=== PATIENT | female | born 1960 ===

== ENCOUNTER 2016-07-25 07:38 | Emergency (ER) | payer OTHER ==
[2016-07-25 08:07] VITALS: BP 144/92; RESP 19; TEMP 97; O2SAT 99
[2016-07-25] MEDS ORDERED: Sodium Chloride 0.9% 1,000 ML IV STA (08:35)
--- NOTE | 2016-07-25 08:49 | ED PDOC ---
HPI: Headache Time Seen by Provider: 07/25/16 07:54 Chief Complaint (Nursing): Headache Chief Complaint (Provider): Headache History Per: Patient History/Exam Limitations: no limitations Onset/Duration Of Symptoms: Days Current Symptoms Are (Timing): Still Present Severity: Moderate Quality: "Pain" Preceeding Symptoms: None Associated Symptoms: denies: Blurred Vision, Nausea, Vomiting Additional Complaint(s): Patient is a 56 year old female who presents to ED for a headache for 1 week. Patient states pain worsened last night at 8pm associated with abdominal pain. Denies fever, cough, nausea, vomiting, diarrhea, back pain, urinary changes or visual changes. Patient notes only minimal relief with Motrin and Tylenol. Reports a history of recurrent headaches with no CT or MRI. PMD: DR. Davis Past Medical History Reviewed: Historical Data, Nursing Documentation, Vital Signs Vital Signs: Last Vital Signs Temp 97 F L 07/25/16 07:56 Pulse 89 07/25/16 07:56 Resp 19 07/25/16 07:56 BP 144/92 H 07/25/16 07:56 Pulse Ox 99 07/25/16 07:56 - Medical History PMH: Gastritis - Surgical History Surgical History: Appendectomy, - Family History Family History: States: No Known Family Hx - Allergies Allergies/Adverse Reactions: Allergies Allergy/AdvReac Type Severity Reaction Status Date / Time No Known Allergies Allergy Verified 07/25/16 07:55 Review of Systems ROS Statement: Except As Marked, All Systems Reviewed And Found Negative Constitutional: Negative for: Fever, Chills Eyes: Negative for: Vision Change Cardiovascular: Negative for: Chest Pain, Palpitations Respiratory: Negative for: Shortness of Breath Gastrointestinal: Positive for: Abdominal Pain. Negative for: Nausea, Vomiting , Diarrhea Genitourinary Female: Negative for: Dysuria, Hematuria Musculoskeletal: Negative for: Neck Pain, Back Pain Skin: Negative for: Rash Neurological: Positive for: Headache. Negative for: Weakness, Numbness, Incoordination, Change in Speech, Dizziness Physical Exam - Reviewed Nursing Documentation Reviewed: Yes Vital Signs Reviewed: Yes - Physical Exam Appears: Positive for: Non-toxic, No Acute Distress Head Exam: Positive for: ATRAUMATIC Skin: Positive for: Normal Color, Warm Eye Exam: Positive for: Normal appearance, EOMI, PERRL Neck: Positive for: Normal, Painless ROM Cardiovascular/Chest: Positive for: Regular Rate, Rhythm. Negative for: Murmur Respiratory: Positive for: Normal Breath Sounds. Negative for: Respiratory Distress Gastrointestinal/Abdominal: Positive for: Soft, Tenderness (mild diffuse). Negative for: Distended, Guarding, Rebound Extremity: Positive for: Normal ROM Neurologic/Psych: Positive for: Alert, Oriented. Negative for: Motor/Sensory Deficits - Laboratory Results Result Diagrams: 07/25/16 09:11 07/25/16 09:11 - ECG ECG: Positive for: Interpreted By Me, Viewed By Me ECG Rhythm: Positive for: Normal QRS, Normal ST Segment, Sinus Rhythm, 1st Degree Heart Block Rate: 73 O2 Sat by Pulse Oximetry: 99 (RA) Pulse Ox Interpretation: Normal - Progress Re-evaluation Time: 11:00 Condition: Re-examined, Improved Medical Decision Making Medical Decision Making: Time: 829 Initial impression: Recurrent headache, possible migraine associated with gastritis, abdominal migraine. R/O brain mass Initial plan: -- CT-head -- EKG -- CMP -- Troponin -- Urine dip -- CBC -- ESR -- NSF, Reglan and Toradol Time: 1030 CT-head results reviewed Impression: Normal CT of the head. No intracranial mass, hemorrhage or evidence of acute infarct Scribe Attestation: Documented by Claudia Hitchcock acting as a scribe for Tino Barba MD MD Scribe Attestation: All medical record entries made by the Scribe were at my direction and personally dictated by me. I have reviewed the chart and agree that the record accurately reflects my personal performance of the history, physical exam, medical decision making, and the department course for this patient. I have also personally directed, reviewed, and agree with the discharge instructions and disposition. Disposition - Clinical Impression Clinical Impression: Headache, Abdominal pain - Patient ED Disposition Is Patient to be Admitted: No Doctor Will See Patient In The: Office Counseled Patient/Family Regarding: Studies Performed, Diagnosis, Need For Followup - Disposition Referrals: [facility] [Outside] Disposition: Routine/Home Disposition Time: 11:02 Condition: GOOD Additional Instructions: Return fro worsening. Follow up with your PCP in 2-3 days. Instructions: General Headache (ED) Print Language: PORTUGUESE
[2016-07-25 09:16] LABS: BASO # 0.1 K/uL (0.0-0.2); BASO % 0.8 % (0.0-2.0); EOS # 0.1 K/uL (0.0-0.7); HEMATOCRIT 40.1 % (34.0-47.0); LYMPH # 2.5 K/uL (1.0-4.3); LYMPH % 36.3 % (20.0-40.0); MEAN CELL VOLUME 90.9 fl (81.0-99.0); MEAN CORPUSCULAR HEMOGLOBIN 30.3 pg (27.0-31.0); MEAN CORPUSCULAR HGB CONC 33.3 g/dL (33.0-37.0); MEAN PLATELET VOLUME 7.3 fl (7.2-11.7); MONO # 0.6 K/uL (0.0-0.8); MONO % 8.5 % (0.0-10.0); NEUT # 3.6 K/uL (1.8-7.0); NEUT % 52.4 % (50.0-75.0); RED CELL DISTRIBUTION WIDTH 12.9 % (11.5-14.5); WHITE BLOOD COUNT 6.9 K/uL (4.8-10.8)
[2016-07-25 09:35] LABS: ALB/GLOB RATIO 1.4 (1.0-2.1); ALKALINE PHOSPHATASE 105 U/L (38-126); ALT/SGPT 27 U/L (9-52); AST/SGOT 29 U/L (14-36); BILIRUBIN,TOTAL 0.8 mg/dl (0.2-1.3); BLOOD UREA NITROGEN 10 mg/dl (7-17); CALCIUM 9.8 mg/dL (8.4-10.2); CARBON DIOXIDE 24 mmol/L (22-30); CHLORIDE 108 mmol/L (98-107); GFR AFRICAN-AMERICAN > 60; GLUCOSE,RANDOM 98 mg/dL (65-105); SODIUM 142 mmol/l (132-148); TOTAL PROTEIN 7.9 G/DL (6.3-8.2)
--- NOTE | 2016-07-25 09:42 | CT ---
PROCEDURE: CT HEAD WITHOUT CONTRAST. HISTORY: headache COMPARISON: None available. TECHNIQUE: Axial computed tomography images were obtained through the head/brain without intravenous contrast. Radiation dose: Total exam DLP = 775.66 mGy-cm. This CT exam was performed using one or more of the following dose reduction techniques: Automated exposure control, adjustment of the mA and/or kV according to patient size, and/or use of iterative reconstruction technique. FINDINGS: HEMORRHAGE: No intracranial hemorrhage. BRAIN: No mass effect or edema. No atrophy or chronic microvascular ischemic changes. VENTRICLES: Unremarkable. No hydrocephalus. CALVARIUM: Unremarkable. PARANASAL SINUSES: Unremarkable as visualized. No significant inflammatory changes. MASTOID AIR CELLS: Unremarkable as visualized. No inflammatory changes. OTHER FINDINGS: None. IMPRESSION: Normal CT of the Head. No intracranial mass, hemorrhage or evidence of acute infarct.
[2016-07-25 09:47] LABS: POTASSIUM 4.4 MMOL/L (3.6-5.0)
[2016-07-25 11:01] VITALS: PULSE 73
[2016-07-25 11:07] LABS: RBC URINE 7 /hpf (0-3); URINE BACTERIA RARE (<OCC); URINE BILIRUBIN NEGATIVE (NEGATIVE); URINE BLOOD MODERATE (NEGATIVE); URINE COLOR YELLOW (YELLOW); URINE GLUCOSE (UA) NEG (Normal); URINE KETONE NEGATIVE (NEGATIVE); URINE LEUKOCYTE ESTERASE NEG Leu/uL (Negative); URINE PROTEIN NEGATIVE (NEGATIVE); URINE UROBILINOGEN 0.2-1.0 mg/dL (0.2-1.0); WBC URINE < 1 /hpf (0-5)
--- NOTE | 2016-07-26 13:44 | CARD ---
APPROVED REPORT EKG Measurement Heart [id number] <Conclusion> Sinus rhythm with 1st degree AV block Otherwise normal ECG
== END 2016-07-25 11:19 | disposition home or self-care (01) ==
LOC: H.ER 07:38
DX: R10.9 Unspecified abdominal pain (principal); R51 Headache

== ENCOUNTER 2017-04-23 18:28 | Inpatient (IN) | payer SELFPAY ==
[2017-04-23 20:10] LABS: BASO # 0.1 K/uL (0.0-0.2); BASO % 0.8 % (0.0-2.0); EOS # 0.1 K/uL (0.0-0.7); EOS % 1.2 % (0.0-4.0); HEMOGLOBIN 13.5 g/dL (12.0-16.0); LYMPH # 2.8 K/uL (1.0-4.3); LYMPH % 32.8 % (20.0-40.0); MEAN CELL VOLUME 91.3 fl (81.0-99.0); MEAN PLATELET VOLUME 7.5 fl (7.2-11.7); MONO # 0.7 K/uL (0.0-0.8); MONO % 8.3 % (0.0-10.0); NEUT # 4.8 K/uL (1.8-7.0); NEUT % 56.9 % (50.0-75.0); RBC 4.35 Mil/uL (3.80-5.20); RED CELL DISTRIBUTION WIDTH 12.8 % (11.5-14.5); WHITE BLOOD COUNT 8.4 K/uL (4.8-10.8)
[2017-04-23 20:12] LABS: PROTHROMBIN TIME 11.6 Seconds (9.8-13.1)
[2017-04-23 20:13] LABS: PARTIAL THROMBOPLASTIN TIME 28.4 Seconds (25.6-37.1)
[2017-04-23 20:25] LABS: B-TYPE NATRIURETIC PEPTIDE 61.3 pg/ml (0-900)
[2017-04-23 20:42] LABS: ALB/GLOB RATIO 1.2 (1.0-2.1); ALBUMIN 4.2 g/dL (3.5-5.0); ALT/SGPT 31 U/L (9-52); AST/SGOT 19 U/L (14-36); BLOOD UREA NITROGEN 14 mg/dl (7-17); CALCIUM 9.9 mg/dL (8.4-10.2); GFR AFRICAN-AMERICAN > 60; GFR NON-AFRICAN AMERICAN > 60
--- NOTE | 2017-04-23 20:59 | ED PDOC ---
HPI: Chest Pain Time Seen by Provider: 04/23/17 18:57 Chief Complaint (Nursing): Chest Pain Chief Complaint (Provider): Chest Pain History Per: Patient History/Exam Limitations: no limitations Additional Complaint(s): 57 y/o female presents to the ED complaining of palpitations that started on Sunday. She feels that her heart is sometimes beating fast and sometimes beating slow. Notes that this is happening frequently. Patient feels better when she coughs. She came back from [facility] 8 days ago and had some leg swelling in flight. Denies shortness of breath, leg swelling or any further medical complaints. PMD: Anthony Davis MD Past Medical History Reviewed: Historical Data, Nursing Documentation, Vital Signs Vital Signs: Last Vital Signs Temp 98.0 F 04/24/17 08:00 Pulse 72 04/24/17 08:00 Resp 18 04/24/17 08:00 BP 110/72 04/24/17 08:00 Pulse Ox 97 04/24/17 08:00 - Medical History PMH: Gastritis - Surgical History Surgical History: Appendectomy, - Family History Family History: States: Other Other Family History: Cardiac disease and arrythmia - Living Arrangements Living Arrangements: With Family - Social History Current smoker - smoking cessation education provided: No Alcohol: None Drugs: Denies - Home Medications Home Medications: Ambulatory Orders Medication Instructions Recorded Atorvastatin Calcium [Atorvastatin 20 mg PO HS 04/23/17 Calcium] Pantoprazole Sodium [Protonix] 40 mg PO DAILY 04/23/17 - Allergies Allergies/Adverse Reactions: Allergies Allergy/AdvReac Type Severity Reaction Status Date / Time No Known Allergies Allergy Verified 07/25/16 07:55 Review of Systems ROS Statement: Except As Marked, All Systems Reviewed And Found Negative (As per HPI, othewise negative) Cardiovascular: Positive for: Palpitations Respiratory: Negative for: Shortness of Breath Musculoskeletal: Negative for: Other (leg swelling) Physical Exam - Reviewed Nursing Documentation Reviewed: Yes Vital Signs Reviewed: Yes - Physical Exam Appears: Positive for: Non-toxic, In Acute Distress Head Exam: Positive for: ATRAUMATIC, NORMOCEPHALIC Skin: Positive for: Warm, Dry Eye Exam: Positive for: EOMI, PERRL ENT: Negative for: Pharyngeal Erythema, Tonsillar Exudate Cardiovascular/Chest: Positive for: Other (regular rhythm with frequent extra beats). Negative for: Edema, Murmur, Bradycardia, Tachycardia Respiratory: Positive for: Normal Breath Sounds. Negative for: Respiratory Distress Gastrointestinal/Abdominal: Positive for: Soft. Negative for: Tenderness Back: Positive for: Normal Inspection. Negative for: Decreased ROM Extremity: Positive for: Normal ROM. Negative for: Deformity Lymphatic: Negative for: Adenopathy Neurologic/Psych: Positive for: Alert. Negative for: Motor/Sensory Deficits - Laboratory Results Result Diagrams: 04/23/17 19:54 04/23/17 19:54 - ECG O2 Sat by Pulse Oximetry: 99 (RA) Pulse Ox Interpretation: Normal Medical Decision Making Medical Decision Making: Time: 19:33 Initial Impression: Palpitations Plan: EKG Urine dipstick Chest x-ray surveillance monitor IV insertion (Saline lock) Reevalaution --EKG reveals multiple PVCs --needs hopitallization for full cardiac evaluation, especially with episodes of chest pain during palpitations and increasing frequency --Pending ER workup Time: 09:00 -- Labs are unremarkable --Chest x-ray - no acute findings Scribe Attestation: Documented by Lelo Serrano acting as a scribe for Diana Weller MD. Scribe Attestation: All medical record entries made by the Scribe were at my direction and personally dictated by me. I have reviewed the chart and agree that the record accurately reflects my personal performance of the history, physical exam, medical decision making, and the department course for this patient. I have also personally directed, reviewed, and agree with the discharge instructions and disposition. Disposition - Clinical Impression Clinical Impression: Arrhythmia Discussed With : Antione Lee Doctor Will See Patient In The: ED Counseled Patient/Family Regarding: Studies Performed, Diagnosis - Disposition Disposition Time: 21:00 Condition: FAIR - Pt Status Changed To: Hospital Disposition Of: Observation - POA Present On Arrival: None
--- NOTE | 2017-04-23 21:15 | CP.PCM.HP ---
History of Present Illness - History of Present Illness History of Present Illness: PMD: Anthony Davis MD Chief Complaint: Palpitation/ Chest pressure The patient was seen and examined in the ED HPI: 57 years old female with hx of Migraine and Gastritis, comes with 4 days of intermittent episodes of Palpitation associated with a pressure type of chest pain and difficulty to breath during these episode. The pain is localized at the pericardium and is present with the palpitation. No coughing, vomiting, Fever, diarrhea. PMH: Gastritis; Migraine, Arthritis PSH: Appendectomy: C Section; Oophorectomy SH: No illegal drug use ; No ETOH use; Former Smoker; Live with family; Works cleaning houses FH: Cardiac Disese and Arrhythmia Allergies: NKDA Medication: Reviewed Present on Admission - Present on Admission Any Indicators Present on Admission: No History of DVT/PE: No History of Uncontrolled Diabetes: No Urinary Catheter: No Decubitus Ulcer Present: No Review of Systems - Constitutional Constitutional: absent: Chills, Fever, Lethargy - EENT Eyes: Requires Corrective Lenses. absent: Diplopia, Floaters, Photophobia, Sees Flashes Ears: absent: Decreased Hearing, Ear Discharge, Ear Pain, Tinnitus Nose/Mouth/Throat: absent: Epistaxis, Nasal Congestion, Sinus Pain, Sinus Pressure - Cardiovascular Cardiovascular: Chest Pain. absent: Claudication, Dyspnea, Leg Edema - Respiratory Respiratory: absent: Cough, Wheezing, Chest Congestion, Excessive Mucous Production - Gastrointestinal Gastrointestinal: absent: Abdominal Pain, Constipation, Diarrhea, Nausea, Vomiting - Musculoskeletal Musculoskeletal: Arthralgias. absent: Muscle Weakness, Radiating Pain into Limb - Integumentary Integumentary: absent: Changing Lesions, Dry Skin, Skin Ulcer, Sores, Striae, Swelling - Neurological Neurological: absent: Confusion, Numbness, Focal Weakness, Weakness - Psychiatric Psychiatric: absent: Anxiety, Depression, Panic Attacks - Endocrine Endocrine: absent: Palpitations, Polydipsia, Polyphagia, Polyuria - Hematologic/Lymphatic Hematologic: absent: Easy Bleeding, Easy Bruising Past Patient History - Infectious Disease Hx of Infectious Diseases: None - Past Medical History & Family History Past Medical History?: Yes - Past Social History Smoking Status: Former Smoker Chewing Tobacco Use: No Cigar Use: No Alcohol: None Drugs: Denies Home Situation {Lives}: With Family - CARDIAC Hx Cardiac Disorders: No - NEUROLOGICAL Hx Neurological Disorder: No - HEENT Hx HEENT Problems: No - RENAL Hx Chronic Kidney Disease: No - INTEGUMENTARY Hx Basil Cell: No - MUSCULOSKELETAL/RHEUMATOLOGICAL Hx Falls: No - GASTROINTESTINAL Hx Gastritis: Yes - GENITOURINARY/GYNECOLOGICAL Hx Genitourinary Disorders: No - PSYCHIATRIC Hx Psychophysiologic Disorder: No Hx Substance Use: No - SURGICAL HISTORY Hx Appendectomy: Yes Hx Section: Yes - ANESTHESIA Hx Anesthesia: Yes Hx Anesthesia Reactions: No Meds Allergies/Adverse Reactions: Allergies Allergy/AdvReac Type Severity Reaction Status Date / Time No Known Allergies Allergy Verified 07/25/16 07:55 Physical Exam - Constitutional Appears: No Acute Distress - Head Exam Head Exam: ATRAUMATIC, NORMAL INSPECTION, NORMOCEPHALIC - Eye Exam Eye Exam: EOMI, Normal appearance Pupil Exam: NORMAL ACCOMODATION, Unequal - ENT Exam ENT Exam: Mucous Membranes Moist, Normal Exam, Normal External Ear Exam, Normal Oropharynx - Neck Exam Neck exam: Positive for: Full Rom, Normal Inspection. Negative for: Lymphadenopathy, Tenderness - Respiratory Exam Respiratory Exam: Clear to Auscultation Bilateral. absent: Rales, Rhonchi, Wheezes - Cardiovascular Exam Cardiovascular Exam: RRR, +S1, +S2 Additional comments: Rhythm regular with irregularity - GI/Abdominal Exam GI & Abdominal Exam: Normal Bowel Sounds, Soft. absent: Mass, Organomegaly, Tenderness - Rectal Exam Rectal Exam: Deferred - Extremities Exam Extremities exam: Positive for: full ROM, normal inspection. Negative for: calf tenderness, pedal edema - Back Exam Back exam: NORMAL INSPECTION. absent: CVA tenderness (L), CVA tenderness (R) - Neurological Exam Neurological exam: Alert, CN II-XII Intact, Oriented x3, Reflexes Normal - Psychiatric Exam Psychiatric exam: Normal Affect, Normal Mood - Skin Skin Exam: Dry, Intact, Normal Color, Warm Results - Vital Signs Recent Vital Signs: Last Vital Signs Temp 97.5 F L 04/23/17 18:43 Pulse 103 H 04/23/17 18:43 Resp 16 04/23/17 18:43 BP 150/76 04/23/17 18:43 Pulse Ox 99 04/23/17 21:04 - Labs Result Diagrams: 04/23/17 19:54 04/23/17 19:54 Labs: Laboratory Results - last 24 hr 04/23/17 04/23/17 04/23/17 19:45 19:54 19:54 WBC 8.4 RBC 4.35 Hgb 13.5 Hct 39.7 MCV 91.3 MCH 31.0 MCHC 34.0 RDW 12.8 Plt Count 295 MPV 7.5 Neut % (Auto) 56.9 Lymph % (Auto) 32.8 Lassen % (Auto) 8.3 Eos % (Auto) 1.2 Baso % (Auto) 0.8 Neut # (Auto) 4.8 Lymph # (Auto) 2.8 Lassen # (Auto) 0.7 Eos # (Auto) 0.1 Baso # (Auto) 0.1 PT INR APTT D-Dimer, Quantitative Sodium 143 Potassium 3.8 Chloride 109 H Carbon Dioxide 21 L Anion Gap 17 BUN 14 Creatinine 0.7 Est GFR ( Amer) > 60 Est GFR (Non-Af Amer) > 60 Random Glucose 116 H Calcium 9.9 Phosphorus 3.1 Magnesium Total Bilirubin 0.6 AST 19 ALT 31 Alkaline Phosphatase 78 Troponin I < 0.0120 NT-Pro-B Natriuret Pep 61.3 Total Protein 7.7 Albumin 4.2 Globulin 3.5 Albumin/Globulin Ratio 1.2 TSH 3rd Generation 1.06 Blood Type A POSITIVE Antibody Screen Negative BBK History Checked No verified bt 04/23/17 04/23/17 19:54 20:32 WBC RBC Hgb Hct MCV MCH MCHC RDW Plt Count MPV Neut % (Auto) Lymph % (Auto) Lassen % (Auto) Eos % (Auto) Baso % (Auto) Neut # (Auto) Lymph # (Auto) Lassen # (Auto) Eos # (Auto) Baso # (Auto) PT 11.6 INR 1.0 APTT 28.4 D-Dimer, Quantitative 192 Sodium Potassium Chloride Carbon Dioxide Anion Gap BUN Creatinine Est GFR ( Amer) Est GFR (Non-Af Amer) Random Glucose Calcium Phosphorus Magnesium 1.9 Total Bilirubin AST ALT Alkaline Phosphatase Troponin I NT-Pro-B Natriuret Pep Total Protein Albumin Globulin Albumin/Globulin Ratio TSH 3rd Generation Blood Type Antibody Screen BBK History Checked - EKG Data EKG comments: Sinus Rhythm with Multiple PVC 95/min - Imaging and Cardiology Chest x-ray Status: Image reviewed by me Additional comment: No infiltrate Clear lungs Assessment & Plan - Assessment and Plan (Free Text) Assessment: #. Cardiac arrhythmia #. Chest Pain #. Gastritis Plan: 57 years old female with hx of Migraine and Gastritis, comes with 4 days of intermittent episodes of Palpitation associated with a pressure type of chest pain and difficulty to breath during these episode. #. Cardiac arrhythmia causing palpitations - Admit to the Telemetry unit with cardiac monitoring - Electrolytes are within normal limits - Cardiology consult with Dr Dacosta #. Chest Pain due to ischemia during episodes of arrhythmia - Serial Troponin - Serial EKG - ECHO - Lipid profile - ASA - Statin #. Gastritis - Pantoprazole #. DVT Prophylaxis with Lovenox #. Code Status:Full - Date & Time Date: 04/23/17 Time: 21:15
[2017-04-24 06:12] LABS: HDL CHOLESTEROL 47 MG/DL (30-70)
[2017-04-24 06:22] LABS: LDL CHOLESTEROL 87 mg/dL (0-129)
[2017-04-24] MEDS: Enoxaparin 40 mg Syringe SC SCH (09:36)
[2017-04-24] MEDS: Pantoprazole 40 mg EC Tab PO SCH (09:36)
--- NOTE | 2017-04-24 11:25 | RAD ---
HISTORY: Palpitations COMPARISON: No prior. FINDINGS: LUNGS: No active pulmonary disease. PLEURA: No significant pleural effusion identified, no pneumothorax apparent. CARDIOVASCULAR: No radiographic findings to suggest acute or significant cardiovascular disease. OSSEOUS STRUCTURES: No significant abnormalities. VISUALIZED UPPER ABDOMEN: Normal. OTHER FINDINGS: None. IMPRESSION: No active disease.
--- NOTE | 2017-04-24 15:03 | CARD ---
APPROVED REPORT EXAM: Two-dimensional and M-mode echocardiogram with Doppler and color Doppler. Other Information Quality : GoodRhythm : NSR INDICATION Chest pressure Palpitations 2D DIMENSIONS IVSd0.94 (0.7-1.1cm)LVDd3.70 (3.9-5.9cm) PWd0.88 (0.7-1.1cm)IVSs1.38 (0.8-1.2cm) LVDs2.43 (2.5-4.0cm)FS (%) 34.3 % PWs1.26 (0.8-1.2cm) M-Mode DIMENSIONS Left Atrium (MM)3.17 (2.5-4.0cm)IVSd0.91 (0.7-1.1cm) Aortic Root2.26 (2.2-3.7cm)LVDd5.07 (4.0-5.6cm) Aortic Cusp Exc.1.85 (1.5-2.0cm)PWd0.85 (0.7-1.1cm) IVSs1.63 cmFS (%) 48 % LVDs2.62 (2.0-3.8cm)PWs1.57 cm Mitral Valve MV E Loiutmom84.4cm/sMV DECEL [id number] A Xtluyvgy43.5cm/s MV MTL08zmR/A ratio0.8MVA (PHT)3.85cm2 TDI Lateral E' Peak V13.28cm/sMedial E' Peak V8.31cm/sE/Lateral E'3.0 E/Medial E'4.9 Pulmonary Valve PV Peak Cmsquxzr644.3cm/s LEFT VENTRICLE The left ventricle is normal size. There is normal left ventricular wall thickness. The left ventricular function is normal. The left ventricular ejection fraction is within the normal range. The Ejection Fraction is 60-65%. There is normal LV segmental wall motion. The left ventricular diastolic function is normal. RIGHT VENTRICLE The right ventricle is normal size. The right ventricular systolic function is normal. ATRIA The left atrium size is normal. The right atrium size is normal. AORTIC VALVE The aortic valve is normal in structure. No aortic regurgitation is present. There is no aortic valvular stenosis. MITRAL VALVE The mitral valve is normal in structure. There is no mitral valve stenosis. There is no mitral valve regurgitation noted. TRICUSPID VALVE The tricuspid valve is normal in structure. There is no tricuspid valve regurgitation noted. There is no tricuspid valve stenosis. PULMONIC VALVE The pulmonary valve is normal in structure. There is no pulmonic valvular regurgitation. GREAT VESSELS The aortic root is normal in size. The IVC is normal in size and collapses >50% with inspiration. PERICARDIAL EFFUSION The pericardium appears normal. <Conclusion> The left ventricle is normal size. The left ventricular function is normal. The left ventricular ejection fraction is within the normal range. The Ejection Fraction is 60-65%.
--- NOTE | 2017-04-24 17:03 | CARD ---
APPROVED REPORT EKG Measurement Heart [id number] <Conclusion> Sinus rhythm with frequent premature ventricular complexes Possible Left atrial enlargement Incomplete right bundle branch block Borderline ECG
[2017-04-24] MEDS ORDERED: Potassium Chloride 20 mEq/15 ml LIQ UD PO ONE (17:53)
--- NOTE | 2017-04-24 18:18 | CP.PCM.CON ---
History of Present Illness - History of Present Illness History of Present Illness: pt with palp starting yesterday and into this am. felt palp and chest tightness. no dizziness, no radiation of pain, no blurry vision. pt denies hx of palp, syncope, cp, dm, htn, dyslipid, fam hx of hd or tobacco use. pts bp reportedly is always on low side. she did notice mild edema in LLE and mild pain. states this always happens when she flies. pt with vent cassius on tele. she recently traveled to [place]. physical exam shows mild LLE edema. Review of Systems - Constitutional Constitutional: As Per HPI. absent: Anorexia, Chills, Daytime Sleepiness, Excessive Sweating, Fatigue, Fever, Frequent Falls, Headache, Increased Appetite , Lethargy, Malaise, Night Sweats, Snoring, Sleep Apnea, Weight Gain, Weight Loss, Weakness, Other - EENT Eyes: As Per HPI. absent: Blind Spots, Blurred Vision, Change in Vision, Decreased Night Vision, Diplopia, Discharge, Dry Eye, Exophthalmos, Floaters, Irritation, Itchy Eyes, Loss of Peripheral Vision, Pain, Photophobia, Requires Corrective Lenses, Sees Flashes, Spots in Vision, Tunnel Vision, Other Visual Disturbances, Loss of Vision, Other Ears: As Per HPI. absent: Decreased Hearing, Ear Discharge, Ear Pain, Tinnitus , Abnormal Hearing, Disequilibrium, Dizziness, Other Nose/Mouth/Throat: As Per HPI. absent: Epistaxis, Nasal Congestion, Nasal Discharge, Nasal Obstruction, Nasal Trauma, Nose Pain, Post Nasal Drip, Sinus Pain, Sinus Pressure, Bleeding Gums, Change in Voice, Dental Pain, Dry Mouth, Dysphagia, Halitosis, Hoarsness, Lip Swelling, Mouth Lesions, Mouth Pain, Odynophagia, Sore Throat, Throat Swelling, Tongue Swelling, Facial Pain, Neck Pain, Neck Mass, Other - Breasts Breasts: As Per HPI. absent: Change in Shape, Mass, Pain, Nipple Discharge, Nipple Inversion, Skin Changes, Swelling, Other - Cardiovascular Cardiovascular: As Per HPI, Chest Pain, Palpitations, Pedal Edema, Rapid Heart Rate. absent: Acrocyanosis, Chest Pain at Rest, Chest Pain with Activity, Claudication, Diaphoresis, Dyspnea, Dyspnea on Exertion, Edema, Irregular Heart Rhythm, Pain Radiating to Arm/Neck/Jaw, Leg Edema, Leg Ulcers, Lightheadedness, Orthopnea, Paroxysmal Nocturnal Dyspnea, Radiating Pain, Slow Heart Rate, Syncope, Other - Respiratory Respiratory: As Per HPI. absent: Cough, Dyspnea, Hemoptysis, Dyspnea on Exertion, Wheezing, Snoring, Stridor, Pain on Inspiration, Chest Congestion, Excessive Mucous Production, Change in Mucous Color, Pain with Coughing, Other - Gastrointestinal Gastrointestinal: As Per HPI. absent: Abdominal Pain, Belching, Bloating, Change in Bowel Habits, Change in Stool Character, Coffee Ground Emesis, Constipation, Cramping, Diarrhea, Dyspepsia, Dysphagia, Early Satiety, Excessive Flatus, Fecal Incontinence, Heartburn, Hematemesis, Hematochezia, Loose Stools, Melena, Nausea, Odynophagia, Temesmus, Vomiting, Other - Genitourinary Genitourinary: As Per HPI. absent: Change in Urinary Stream, Difficulty Urinating, Dysuria, Flank Pain, Hematuria, Pyuria, Nocturia, Urinary Incontinence, Urinary Frequency, Urinary Hesitance, Urinary Urgency, Voiding Freq/Small Amts, Freq UTI, Hx Renal/Bladder Calculi, Hx /Renal Surgery, Bladder Distension, Other - Reproductive: Female Reproductive:Female: As Per HPI. absent: Amenorrhea, Amenorrhea/ Control, Currently Menstual, Cycle <21 Days, Cycle >35 Days, Cycle Variable, Menses 1-7 Days, Menses >/= 8 Days, Menses Variable, Cycle > 4 Weeks Between, No Menses for 6 Months, Heavy Menses, Light Menses, Normal Menses, Spotting Between Cycles , S/P Hysterectomy, Menopausal, Post Menopausal, Premenarche, Abnormal Vaginal Bleeding, Dysmenorrhea, Dyspareunia, Genital Lesions, Genital Pruritis, Pelvic Pain, Prolapse Symptoms, Sexual Dysfunction, Vaginal Discharge, Vaginal Dryness , Vaginal Odor, Vaginal Pruritis, Other - Menstruation Menstruation: As Per HPI, Post Menopausal. absent: Amenorrhea, Amenorrhea/ Control, Currently Menstual, Cycle <21 Days, Cycle >35 Days, Cycle Variable, Menses 1-7 Days, Menses >/= 8 Days, Menses Variable, Cycle > 4 Weeks Between, No Menses for 6 Months, Heavy Menses, Light Menses, Normal Menses, Spotting Between Cycles, S/P Hysterectomy, Menopausal, Premenarche, Abnormal Vaginal Bleeding, Dysmenorrhea, Other - Musculoskeletal Musculoskeletal: As Per HPI. absent: Abnormal Gait, Arthralgias, Atrophy, Back Pain, Deformity, Joint Swelling, Limited Range of Motion, Loss of Height, Muscle Cramps, Muscle Weakness, Myalgias, Neck Pain, Numbness, Radiating Pain into Limb, Stiffness, Tingling, Other - Integumentary Integumentary: As Per HPI. absent: Acne, Alopecia, Bleeding Lesions, Change in Hair, Change in Nails, Change in Pigmentation, Changing Lesions, Dry Skin, Erythema, Furuncle, Hirsutism, Lesions, New Lesions, Non-Healing Lesions, Photosensitivity, Pruritus, Rash, Skin Pain, Skin Ulcer, Sores, Striae, Swelling , Unusual Bruising, Wounds, Jaundice, Other - Neurological Neurological: As Per HPI. absent: Abnormal Gait, Abnormal Hearing, Abnormal Movements, Abnormal Speech, Behavioral Changes, Burning Sensations, Confusion, Convulsions, Disequilibrium, Dizziness, Numbness, Focal Weakness, Frequent Falls , Headaches, Lack of Coordination, Loss of Vision, Memory Loss, Paresthesias, Radicular Pain, Restless Legs, Sensory Deficit, Syncope, Tingling, Tremor, Vertigo, Weakness, Other Visual Disturbances, Other - Psychiatric Psychiatric: As Per HPI. absent: Abnormal Sleep Pattern, Anhedonia, Anxiety, Auditory Hallucinations, Behavioral Changes, Change in Appetite, Change in Libido, Confusion, Depression, Difficulty Concentrating, Hallucinations, Homicidal Ideation, Hopelessness, Irritability, Memory Loss, Mood Swings, Panic Attacks, Paranoia, Suicidal Ideation, Visual Hallucinations, Tactile Hallucinations, Other - Endocrine Endocrine: As Per HPI. absent: Change in Body Appearance, Change in Libido, Cold Intolorance, Deepening of Voice, Excessive Sweating, Fatigue, Flushing, Heat Intolorance, Increase in Ring/Shoe/Hat Size, Palpitations, Polydipsia, Polyphagia, Polyuria, Other - Hematologic/Lymphatic Hematologic: As Per HPI. absent: Easy Bleeding, Easy Bruising, Lymphadenopathy , Other Past Patient History - Infectious Disease Hx of Infectious Diseases: None - Past Medical History & Family History Past Medical History?: Yes - Past Social History Smoking Status: Never Smoked Alcohol: None Drugs: Denies Home Situation {Lives}: With Family Domestic Violence: Negative - CARDIAC Hx Cardiac Disorders: No - PULMONARY Hx Respiratory Disorders: No - NEUROLOGICAL Hx Neurological Disorder: No - HEENT Hx HEENT Problems: No - RENAL Hx Chronic Kidney Disease: No - ENDOCRINE/METABOLIC Hx Endocrine Disorders: No - HEMATOLOGICAL/ONCOLOGICAL Hx Blood Disorders: No - INTEGUMENTARY Hx Basil Cell: No - MUSCULOSKELETAL/RHEUMATOLOGICAL Hx Falls: No - GASTROINTESTINAL Hx Gastritis: Yes - GENITOURINARY/GYNECOLOGICAL Hx Genitourinary Disorders: No - PSYCHIATRIC Hx Psychophysiologic Disorder: No Hx Substance Use: No - SURGICAL HISTORY Hx Appendectomy: Yes - ANESTHESIA Hx Anesthesia: Yes Hx Anesthesia Reactions: No Meds Allergies/Adverse Reactions: Allergies Allergy/AdvReac Type Severity Reaction Status Date / Time No Known Allergies Allergy Verified 07/25/16 07:55 - Medications Medications: Current Medications Aspirin (Ecotrin) 81 mg PO DAILY [facility] Last Admin: 04/24/17 09:36 Dose: 81 mg Atorvastatin Calcium (Lipitor) 20 mg PO HS [facility]RISTY Enoxaparin Sodium (Lovenox) 40 mg SC DAILY [facility] PRN Reason: Protocol Last Admin: 04/24/17 09:36 Dose: 40 mg Magnesium Sulfate 1 gm/ Sodium (Chloride) 102 mls @ 204 mls/hr IVPB ONCE ONE PRN Reason: 1 GM/30 MIN Stop: 04/24/17 18:23 Metoprolol Tartrate (Lopressor) 12.5 mg PO Q12 [facility] Pantoprazole Sodium (Protonix Ec Tab) 40 mg PO DAILY [facility] Last Admin: 04/24/17 09:36 Dose: 40 mg Physical Exam - Constitutional Appears: Well - Head Exam Head Exam: ATRAUMATIC, NORMAL INSPECTION, NORMOCEPHALIC - Eye Exam Eye Exam: EOMI, Normal appearance, PERRL. absent: Conjunctival injection, Nystagmus, Periorbital swelling, Periorbital tenderness, Scleral icterus Pupil Exam: NORMAL ACCOMODATION, PERRL. absent: Fixed, Irregular, Miosis, Mydriatic, Unequal - ENT Exam ENT Exam: Mucous Membranes Moist, Normal Exam. absent: Mucous Membranes Dry, Normal External Ear Exam, Normal Oropharynx, TM's Normal Bilaterally - Neck Exam Neck exam: Positive for: Normal Inspection. Negative for: Full Rom, Lymphadenopathy, Meningismus, Tenderness, Thyromegaly - Respiratory Exam Respiratory Exam: Clear to Auscultation Bilateral, NORMAL BREATHING PATTERN. absent: Accessory Muscle Use, Chest Wall Tenderness, Decreased Breath Sounds, Prolonged Expiratory Phase, Rales, Rhonchi, Wheezes, Respiratory Distress, Stridor - Cardiovascular Exam Cardiovascular Exam: REGULAR RHYTHM, +S1, +S2, Systolic Murmur. absent: Bradycardia, Tachycardia, Clicks, Diastolic murmur, Gallop, Irregular Rhythm, JVD, RRR, Rubs, +S4 - GI/Abdominal Exam GI & Abdominal Exam: Normal Bowel Sounds, Soft. absent: Bruit, Diminished Bowel Sounds, Distended, Firm, Guarding, Hernia, Hyperactive Bowel Sounds, Hypoactive Bowel Sounds, Mass, Organomegaly, Pulsatile Mass, Rebound, Rigid, Tenderness - Rectal Exam Rectal Exam: Deferred - Extremities Exam Extremities exam: Positive for: pedal edema, pedal pulses present. Negative for : calf tenderness, full ROM, joint swelling, normal capillary refill, normal inspection, tenderness - Back Exam Back exam: NORMAL INSPECTION. absent: CVA tenderness (L), CVA tenderness (R), FULL ROM, muscle spasm, paraspinal tenderness, rash noted, tenderness, vertebral tenderness - Neurological Exam Neurological exam: Alert, CN II-XII Intact, Normal Gait, Oriented x3, Reflexes Normal - Psychiatric Exam Psychiatric exam: Normal Affect, Normal Mood - Skin Skin Exam: Dry, Intact, Normal Color, Warm Results - Vital Signs Recent Vital Signs: Last Vital Signs Temp 98 F 04/24/17 16:53 Pulse 77 04/24/17 16:53 Resp 16 04/24/17 16:53 BP 116/76 04/24/17 16:53 Pulse Ox 96 04/24/17 16:53 - Labs Result Diagrams: 04/23/17 19:54 04/25/17 05:30 Labs: Laboratory Results - last 24 hr 04/23/17 04/23/17 04/23/17 19:45 19:54 19:54 WBC 8.4 RBC 4.35 Hgb 13.5 Hct 39.7 MCV 91.3 MCH 31.0 MCHC 34.0 RDW 12.8 Plt Count 295 MPV 7.5 Neut % (Auto) 56.9 Lymph % (Auto) 32.8 Moore % (Auto) 8.3 Eos % (Auto) 1.2 Baso % (Auto) 0.8 Neut # (Auto) 4.8 Lymph # (Auto) 2.8 Moore # (Auto) 0.7 Eos # (Auto) 0.1 Baso # (Auto) 0.1 PT INR APTT D-Dimer, Quantitative Sodium 143 Potassium 3.8 Chloride 109 H Carbon Dioxide 21 L Anion Gap 17 BUN 14 Creatinine 0.7 Est GFR ( Amer) > 60 Est GFR (Non-Af Amer) > 60 Random Glucose 116 H Calcium 9.9 Phosphorus 3.1 Magnesium Total Bilirubin 0.6 AST 19 ALT 31 Alkaline Phosphatase 78 Troponin I < 0.0120 NT-Pro-B Natriuret Pep 61.3 Total Protein 7.7 Albumin 4.2 Globulin 3.5 Albumin/Globulin Ratio 1.2 Triglycerides Cholesterol LDL Cholesterol Direct HDL Cholesterol TSH 3rd Generation 1.06 Blood Type A POSITIVE Antibody Screen Negative BBK History Checked No verified bt 04/23/17 04/23/17 04/24/17 19:54 20:32 04:20 WBC RBC Hgb Hct MCV MCH MCHC RDW Plt Count MPV Neut % (Auto) Lymph % (Auto) Moore % (Auto) Eos % (Auto) Baso % (Auto) Neut # (Auto) Lymph # (Auto) Moore # (Auto) Eos # (Auto) Baso # (Auto) PT 11.6 INR 1.0 APTT 28.4 D-Dimer, Quantitative 192 Sodium Potassium Chloride Carbon Dioxide Anion Gap BUN Creatinine Est GFR ( Amer) Est GFR (Non-Af Amer) Random Glucose Calcium Phosphorus Magnesium 1.9 Total Bilirubin AST ALT Alkaline Phosphatase Troponin I < 0.0120 NT-Pro-B Natriuret Pep Total Protein Albumin Globulin Albumin/Globulin Ratio Triglycerides 89 D Cholesterol 159 LDL Cholesterol Direct 87 HDL Cholesterol 47 TSH 3rd Generation Blood Type Antibody Screen BBK History Checked 04/24/17 15:00 WBC RBC Hgb Hct MCV MCH MCHC RDW Plt Count MPV Neut % (Auto) Lymph % (Auto) Moore % (Auto) Eos % (Auto) Baso % (Auto) Neut # (Auto) Lymph # (Auto) Moore # (Auto) Eos # (Auto) Baso # (Auto) PT INR APTT D-Dimer, Quantitative Sodium Potassium Chloride Carbon Dioxide Anion Gap BUN Creatinine Est GFR ( Amer) Est GFR (Non-Af Amer) Random Glucose Calcium Phosphorus Magnesium Total Bilirubin AST ALT Alkaline Phosphatase Troponin I < 0.0120 NT-Pro-B Natriuret Pep Total Protein Albumin Globulin Albumin/Globulin Ratio Triglycerides Cholesterol LDL Cholesterol Direct HDL Cholesterol TSH 3rd Generation Blood Type Antibody Screen BBK History Checked - EKG Data EKG Interpreted by: Myself EKG shows normal: Sinus rhythm - EKG Data EKG comments: pvcs Assessment & Plan (1) Ventricular bigeminy seen on supervisor statement clerks Status: Acute (2) Palpitations Status: Acute (3) Chest pain Status: Acute (4) Lower extremity edema Status: Acute - Assessment and Plan (Free Text) Plan: pt with vent bigem on tele. this is symptomatic. she recently traveled to [facility]. she did have mild pain in her LLe. physical exam shows mild LLE edema. would rule out dvt/pe. repleat lytes. check thyroid function. continue tele. add beta blockers. echo shows nml ef, grade 1 diastolic.
--- NOTE | 2017-04-24 18:34 | CP.PCM.PN ---
Subjective - Date & Time of Evaluation Date of Evaluation: 04/24/17 Time of Evaluation: 09:00 - Subjective Subjective: Pt denies CP at present has occ Palpitation occ SOB when she feels palpitation Trop x 3 neg, DDimer : negative, TSH normal no abd pain no N/V no fever Objective - Vital Signs/Intake and Output Vital Signs (last 24 hours): Temp Pulse Resp BP Pulse Ox 98 F 77 16 116/76 96 04/24/17 16:53 04/24/17 16:53 04/24/17 16:53 04/24/17 16:53 04/24/17 16:53 - Medications Medications: Current Medications Aspirin (Ecotrin) 81 mg PO DAILY [facility] Last Admin: 04/24/17 09:36 Dose: 81 mg Atorvastatin Calcium (Lipitor) 20 mg PO HS CHRISTY Enoxaparin Sodium (Lovenox) 40 mg SC DAILY [facility] PRN Reason: Protocol Last Admin: 04/24/17 09:36 Dose: 40 mg Metoprolol Tartrate (Lopressor) 12.5 mg PO Q12 [facility] Pantoprazole Sodium (Protonix Ec Tab) 40 mg PO DAILY [facility] Last Admin: 04/24/17 09:36 Dose: 40 mg - Labs Labs: 04/23/17 19:54 04/23/17 19:54 PT 11.6 Seconds (9.8-13.1) 04/23/17 19:54 INR 1.0 (0.9-1.2) 04/23/17 19:54 APTT 28.4 Seconds (25.6-37.1) 04/23/17 19:54 - Constitutional Appears: No Acute Distress - Head Exam Head Exam: NORMAL INSPECTION, NORMOCEPHALIC - Eye Exam Eye Exam: EOMI, Normal appearance, PERRL Pupil Exam: NORMAL ACCOMODATION - ENT Exam ENT Exam: Mucous Membranes Moist, Normal External Ear Exam - Neck Exam Neck Exam: Full ROM. absent: Meningismus - Respiratory Exam Respiratory Exam: NORMAL BREATHING PATTERN. absent: Respiratory Distress - Cardiovascular Exam Cardiovascular Exam: REGULAR RHYTHM, +S1, +S2 - GI/Abdominal Exam GI & Abdominal Exam: Soft, Normal Bowel Sounds. absent: Tenderness - Extremities Exam Extremities Exam: Full ROM, Normal Capillary Refill. absent: Calf Tenderness - Back Exam Back Exam: NORMAL INSPECTION. absent: CVA tenderness (L), CVA tenderness (R), vertebral tenderness - Neurological Exam Neurological Exam: Alert, Awake, CN II-XII Intact, Normal Gait, Oriented x3 Neuro motor strength exam: Left Upper Extremity: 5, Right Upper Extremity: 5, Left Lower Extremity: 5, Right Lower Extremity: 5 - Psychiatric Exam Psychiatric exam: Normal Affect, Normal Mood - Skin Skin Exam: Normal Color, Warm Assessment and Plan - Assessment and Plan (Free Text) Assessment: 57 years old female with hx of Migraine and Gastritis, came with 4 days of intermittent episodes of Palpitation associated with a pressure type of chest pain and difficulty to breath during these episode. #. Symptomatic Bigeminy - pt has palpitations - cont Telemetry unit with cardiac monitoring - Electrolytes are within normal limits - Cardiology consulted :Dr Dacosta - rec to r/o PE/DVT - rec Doppler US of LE and V/Q scan - Ddimer : negative #. Chest Pain - Serial Troponin negative x 3 - Serial EKG - ECHO : normal - Lipid profile - cont ASA, Statin #. Gastritis - Pantoprazole #. DVT Prophylaxis with Lovenox
[2017-04-25 07:07] LABS: LDL CHOLESTEROL 79 mg/dL (0-129)
[2017-04-25 07:13] LABS: BLOOD UREA NITROGEN 12 mg/dl (7-17); CALCIUM 9.8 mg/dL (8.4-10.2); GFR AFRICAN-AMERICAN > 60; GFR NON-AFRICAN AMERICAN > 60; HDL CHOLESTEROL 46 MG/DL (30-70); MAGNESIUM 2.4 MG/DL (1.6-2.3)
[2017-04-25 08:38] VITALS: RESP 20
[2017-04-25] MEDS: Enoxaparin 40 mg Syringe SC SCH (09:01)
[2017-04-25] MEDS: Pantoprazole 40 mg EC Tab PO SCH (09:01)
--- NOTE | 2017-04-25 12:38 | US ---
PROCEDURE: Bilateral lower extremity venous duplex Doppler. HISTORY: beatrice COMPARISON: None available. TECHNIQUE: Bilateral common femoral, superficial femoral, popliteal and posterior tibial veins were evaluated. Flow was assessed with color Doppler, compressibility, assessment of phasic flow and augmentation response. FINDINGS: COMMON FEMORAL VEIN: Right CFV: Unremarkable. Left CFV: Unremarkable. SUPERFICIAL FEMORAL VEIN: Right SFV: Unremarkable. Left SFV: Unremarkable. POPLITEAL VEIN: Right Popliteal: Unremarkable. Left Popliteal: Unremarkable. POSTERIOR TIBIAL VEIN: Right PTV: Unremarkable. Left PTV: Unremarkable. OTHER FINDINGS: None. IMPRESSION: No evidence of deep venous thrombosis.
[2017-04-25 12:48] VITALS: BP 131/85; PULSE 69; TEMP 98; O2SAT 98
--- NOTE | 2017-04-25 16:28 | CP.PCM.PN ---
Subjective - Date & Time of Evaluation Date of Evaluation: 04/25/17 Time of Evaluation: 16:19 - Subjective Subjective: PT WITHOUT CONTINUED PALP (CURRENTLY ON METOPROLOL) DESPITE CONTINUED VENT TRIGEMNEY ON TELE FROM 2158 YESTERDAY UNTIL 915AM TODAY. LE US NO DVT. I REVIEWED THE ECHO, NO EVIDENCE OF WALL MOTION ABN. PT AMBULATING WITH GOOD HR RESPONSE AND NO ARRYTHMIA. Objective - Vital Signs/Intake and Output Vital Signs (last 24 hours): Temp Pulse Resp BP Pulse Ox 98.0 F 69 20 131/85 98 04/25/17 12:47 04/25/17 12:47 04/25/17 12:47 04/25/17 12:47 04/25/17 12:47 - Medications Medications: Current Medications Acetaminophen (Tylenol 325mg Tab) 650 mg PO Q6 PRN PRN Reason: Headache Last Admin: 04/25/17 11:47 Dose: 650 mg Aspirin (Ecotrin) 81 mg PO DAILY [facility] Last Admin: 04/25/17 09:00 Dose: 81 mg Atorvastatin Calcium (Lipitor) 20 mg PO HS [facility] Last Admin: 04/24/17 21:42 Dose: 20 mg Enoxaparin Sodium (Lovenox) 40 mg SC DAILY [facility] PRN Reason: Protocol Last Admin: 04/25/17 09:01 Dose: 40 mg Metoprolol Tartrate (Lopressor) 12.5 mg PO Q12 [facility] Last Admin: 04/25/17 09:00 Dose: 12.5 mg Pantoprazole Sodium (Protonix Ec Tab) 40 mg PO DAILY [facility] Last Admin: 04/25/17 09:01 Dose: 40 mg - Labs Labs: 04/23/17 19:54 04/25/17 05:30 PT 11.6 Seconds (9.8-13.1) 04/23/17 19:54 INR 1.0 (0.9-1.2) 04/23/17 19:54 APTT 28.4 Seconds (25.6-37.1) 04/23/17 19:54 - Constitutional Appears: Well - Head Exam Head Exam: ATRAUMATIC, NORMAL INSPECTION, NORMOCEPHALIC - Eye Exam Eye Exam: EOMI, Normal appearance, PERRL. absent: Conjunctival injection, Nystagmus, Periorbital swelling, Periorbital tenderness, Scleral icterus Pupil Exam: NORMAL ACCOMODATION, PERRL - ENT Exam ENT Exam: Mucous Membranes Moist, Normal Exam. absent: Mucous Membranes Dry, Normal External Ear Exam, Normal Oropharynx, TM's Normal Bilaterally - Neck Exam Neck Exam: Full ROM, Normal Inspection - Respiratory Exam Respiratory Exam: Clear to Ausculation Bilateral, NORMAL BREATHING PATTERN. absent: Accessory Muscle Use, Chest Wall Tenderness, Decreased Breath Sounds, Prolonged Expiratory Phase, Rales, Rhonchi, Wheezes, Respiratory Distress, Stridor - Cardiovascular Exam Cardiovascular Exam: REGULAR RHYTHM, +S1, +S2, Murmur. absent: Bradycardia, Tachycardia, Clicks, Diastolic murmur, Gallop, Irregular Rhythm, JVD, RRR, Rubs , +S4 - GI/Abdominal Exam GI & Abdominal Exam: Soft, Normal Bowel Sounds - Rectal Exam Rectal Exam: Deferred - Extremities Exam Extremities Exam: Full ROM, Normal Capillary Refill, Pedal Edema. absent: Calf Tenderness, Joint Swelling, Normal Inspection, Tenderness - Back Exam Back Exam: NORMAL INSPECTION. absent: CVA tenderness (L), CVA tenderness (R), Full ROM, muscle spasm, paraspinal tenderness, rash noted, tenderness, vertebral tenderness - Neurological Exam Neurological Exam: Alert, Awake, CN II-XII Intact, Normal Gait, Oriented x3. absent: Abnormal Gait, Altered, Motor Sensory Deficit, Reflexes Normal - Psychiatric Exam Psychiatric exam: Normal Affect, Normal Mood. absent: Agitated, Anxious, Depressed, Flat Affect, Homicidal Ideation, Manic, Suicidal Ideation - Skin Skin Exam: Dry, Intact, Normal Color, Warm. absent: Abrasion, Cyanosis, Diaphoretic, Erythema, Mottled, Pallor, Pallor, Petechiae, Rash, Urticaria, Vesicles Assessment and Plan (1) Ventricular bigeminy seen on lunchroom monitor Status: Acute (2) Palpitations Status: Acute (3) Chest pain Status: Acute (4) Lower extremity edema Status: Acute - Assessment and Plan (Free Text) Plan: ERIC REPLEATED THYROID NML LE US NML TROP NEGATIVE AWAIT V/Q SCAN. IF NEGATIVE THEN PT MAY BE D/C TO HOME. SHE WILL NEED TO F/U OUTPT FOR FURTHER TESTING. 45 MIN TOTAL CARE TIME.
--- NOTE | 2017-04-25 16:48 | NM ---
COMPARISON: Comparison is made to the previous chest x-ray dated 04/23/2017 TECHNIQUE: 5.0 mCi technetium 99-m DTPA aerosal 5.27 mCI technetium 99-m MAA administered intravenously. FINDINGS: VENTILATION COMPONENT: Mildly heterogeneous ventilation noted without evidence of segmental defect PERFUSION COMPONENT: No evidence of segmental or subsegmental mismatched perfusion defect. IMPRESSION: Lowprobability ventilation perfusion scan for pulmonary embolism.
--- NOTE | 2017-04-25 16:54 | CP.PCM.DIS ---
Provider - Provider Date of Admission: 04/24/17 18:34 Attending physician: Antione Lee Primary care physician: Dr Davis Consults: Cardio: Dr Dacosta Time Spent in preparation of Discharge (in minutes): 35 Diagnosis - Discharge Diagnosis (1) Chest pain Status: Acute (2) Palpitations Status: Acute (3) Ventricular bigeminy seen on phytopathologist Status: Acute Hospital Course - Lab Results Lab Results: Most Recent Lab Values WBC 8.4 K/uL (4.8-10.8) 04/23/17 19:54 RBC 4.35 Mil/uL (3.80-5.20) 04/23/17 19:54 Hgb 13.5 g/dL (12.0-16.0) 04/23/17 19:54 Hct 39.7 % (34.0-47.0) 04/23/17 19:54 MCV 91.3 fl (81.0-99.0) 04/23/17 19:54 MCH 31.0 pg (27.0-31.0) 04/23/17 19:54 MCHC 34.0 g/dL (33.0-37.0) 04/23/17 19:54 RDW 12.8 % (11.5-14.5) 04/23/17 19:54 Plt Count 295 K/uL (130-400) 04/23/17 19:54 MPV 7.5 fl (7.2-11.7) 04/23/17 19:54 Neut % (Auto) 56.9 % (50.0-75.0) 04/23/17 19:54 Lymph % (Auto) 32.8 % (20.0-40.0) 04/23/17 19:54 [place] % (Auto) 8.3 % (0.0-10.0) 04/23/17 19:54 Eos % (Auto) 1.2 % (0.0-4.0) 04/23/17 19:54 Baso % (Auto) 0.8 % (0.0-2.0) 04/23/17 19:54 Neut # (Auto) 4.8 K/uL (1.8-7.0) 04/23/17 19:54 Lymph # (Auto) 2.8 K/uL (1.0-4.3) 04/23/17 19:54 [place] # (Auto) 0.7 K/uL (0.0-0.8) 04/23/17 19:54 Eos # (Auto) 0.1 K/uL (0.0-0.7) 04/23/17 19:54 Baso # (Auto) 0.1 K/uL (0.0-0.2) 04/23/17 19:54 ESR 34 mm/hr (0-30) H 04/25/17 05:30 PT 11.6 Seconds (9.8-13.1) 04/23/17 19:54 INR 1.0 (0.9-1.2) 04/23/17 19:54 APTT 28.4 Seconds (25.6-37.1) 04/23/17 19:54 D-Dimer, Quantitative 192 ng/mlDDU (0-230) 04/23/17 19:54 Sodium 144 mmol/l (132-148) 04/25/17 05:30 Potassium 4.1 MMOL/L (3.6-5.0) 04/25/17 05:30 Chloride 108 mmol/L (98-107) H 04/25/17 05:30 Carbon Dioxide 26 mmol/L (22-30) 04/25/17 05:30 Anion Gap 14 (10-20) 04/25/17 05:30 BUN 12 mg/dl (7-17) 04/25/17 05:30 Creatinine 0.8 mg/dl (0.7-1.2) 04/25/17 05:30 Est GFR ( Amer) > 60 04/25/17 05:30 Est GFR (Non-Af Amer) > 60 04/25/17 05:30 Random Glucose 94 mg/dL (65-105) 04/25/17 05:30 Calcium 9.8 mg/dL (8.4-10.2) 04/25/17 05:30 Phosphorus 3.1 mg/dl (2.5-4.5) 04/23/17 19:54 Magnesium 2.4 MG/DL (1.6-2.3) H 04/25/17 05:30 Total Bilirubin 0.6 mg/dl (0.2-1.3) 04/23/17 19:54 AST 19 U/L (14-36) 04/23/17 19:54 ALT 31 U/L (9-52) 04/23/17 19:54 Alkaline Phosphatase 78 U/L (38-126) 04/23/17 19:54 Troponin I < 0.0120 ng/mL (0.00-0.120) 04/24/17 15:00 C-React Prot High Sens 1.02 mg/L (1.00-3.00) 04/25/17 05:30 NT-Pro-B Natriuret Pep 61.3 pg/ml (0-900) 04/23/17 19:54 Total Protein 7.7 G/DL (6.3-8.2) 04/23/17 19:54 Albumin 4.2 g/dL (3.5-5.0) 04/23/17 19:54 Globulin 3.5 gm/dL (2.2-3.9) 04/23/17 19:54 Albumin/Globulin Ratio 1.2 (1.0-2.1) 04/23/17 19:54 Triglycerides 120 mg/DL (0-149) D 04/25/17 05:30 Cholesterol 158 mg/dL (0-199) 04/25/17 05:30 LDL Cholesterol Direct 79 mg/dL (0-129) 04/25/17 05:30 HDL Cholesterol 46 MG/DL (30-70) 04/25/17 05:30 TSH 3rd Generation 1.06 mIU/ML (0.46-4.68) 04/23/17 19:54 Blood Type A POSITIVE 04/23/17 19:45 Antibody Screen Negative 04/23/17 19:45 BBK History Checked No verified bt 04/23/17 19:45 - Hospital Course Hospital Course: 57 years old female with hx of Migraine and Gastritis, came with 4 days of intermittent episodes of Palpitation associated with a pressure type of chest pain and difficulty to breath during these episode. #. Symptomatic Bigeminy - pt had palpitations - monitored in Telemetry unit with cardiac monitoring - Electrolytes are within normal limits - Cardiology consulted :Dr Dacosta - rec to r/o PE/DVT - rec Doppler US of LE and V/Q scan w/c were negative for DVT and low prob for PE - Ddimer : negative #. Chest Pain, ACS ruled out, CP likely due to the Palpitation - Serial Troponin negative x 3 - Serial EKG - ECHO : normal - cont ASA, Statin -TSH normal #. Gastritis - Pantoprazole #. DVT Prophylaxis with Lovenox Discharge Exam - Head Exam Head Exam: ATRAUMATIC, NORMAL INSPECTION, NORMOCEPHALIC - Eye Exam Eye Exam: EOMI, Normal appearance, PERRL Pupil Exam: NORMAL ACCOMODATION - ENT Exam ENT Exam: Mucous Membranes Moist, Normal External Ear Exam - Neck Exam Neck exam: Full Rom - Respiratory Exam Respiratory Exam: NORMAL BREATHING PATTERN. absent: Respiratory Distress - Cardiovascular Exam Cardiovascular Exam: REGULAR RHYTHM, +S1, +S2 - GI/Abdominal Exam GI & Abdominal Exam: Normal Bowel Sounds, Soft. absent: Tenderness - Extremities Exam Extremities exam: full ROM, normal capillary refill, normal inspection, pedal pulses present - Back Exam Back exam: FULL ROM. absent: CVA tenderness (L), CVA tenderness (R) - Neurological Exam Neurological exam: Alert, CN II-XII Intact, Normal Gait, Oriented x3, Reflexes Normal - Psychiatric Exam Psychiatric exam: Normal Affect, Normal Mood - Skin Skin Exam: Dry, Normal Color, Warm Discharge Plan - Follow Up Plan Condition: GOOD Disposition: HOME/ ROUTINE Instructions: Chest Pain (DC), Palpitations (DC) Additional Instructions: ff up with PMD [facility] for further cardiac work up Referrals: Anthony Davis MD [Family Provider] - Ebenezer Dacosta MD [Staff Provider] -
== END 2017-04-25 18:00 | disposition home or self-care (01) | DRG 143 ==
LOC: H.ER 18:28 → H.ERHOLD 21:01 → H.TEL 23:35 → OBSVTOIN 04-24 18:34
PROVIDERS: ADMIT Internal Medicine; ATTEND Internal Medicine
DX: R07.89 Other chest pain (principal); G43.909 Migraine, unspecified, not intractable, without status migrainosus; R00.8 Other abnormalities of heart beat; K29.70 Gastritis, unspecified, without bleeding; R00.2 Palpitations; Z87.891 Personal history of nicotine dependence; R60.0 Localized edema; M19.90 Unspecified osteoarthritis, unspecified site